=== PATIENT | male | born 1970 | race Caucasian/White ===

== ENCOUNTER → 2019-09-15 17:01 | Outpatient (BNVA) | payer BC, SELFPAY | PROVIDERS: Family Provider Nurse Practitioner; PCP Family Medicine; Visit Provider Family Medicine | DX: A09 Infectious gastroenteritis and colitis, unspecified (principal) | CPT/HCPCS: 87046; 87177; 87209; 87493 ==

== ENCOUNTER → 2019-09-19 14:39 | Outpatient (BNVA) | payer BC, SELFPAY | PROVIDERS: Family Provider Nurse Practitioner; PCP Family Medicine; Visit Provider Family Medicine | DX: A09 Infectious gastroenteritis and colitis, unspecified (principal) | CPT/HCPCS: 87505 ==

== ENCOUNTER → 2019-09-21 11:15 | Outpatient (BNVA) | payer BC, SELFPAY | PROVIDERS: Family Provider Nurse Practitioner; PCP Family Medicine; Visit Provider Family Medicine | DX: A09 Infectious gastroenteritis and colitis, unspecified (principal) | CPT/HCPCS: 87505 ==

== ENCOUNTER 2019-09-22 09:31 | Emergency (ER) | payer BC, SELFPAY ==
[2019-09-22 09:34] VITALS: BMI 43.2
[2019-09-22 09:38] VITALS: BP 161/117; PULSE 77; RESP 18; TEMP 36.6; O2SAT 98
[2019-09-22 10:11] LABS: Add Urine Microscopic? NO
[2019-09-22 10:17] LABS: Bilirubin Urine Neg (NEGATIVE); Blood Urine Neg (Negative); Glucose Urine UA Norm (Normal); Ketones Urine Negative (Negative); Leukocyte Esterase Urine Negative (Negative); Nitrate Urine Negative (Negative); Protein Urine Neg (Negative); Specific Gravity, Urine 1.015 (1.005-1.030); Urine Appearance Clear (CLEAR); Urine Color Yellow (Yellow); Urobilinogen Urine Norm (Negative)
[2019-09-22 10:28] LABS: Basophils % 0.5 %; Eosinophils # 0.3 10^3/uL (0.0-0.8); Eosinophils % 5.7 %; Hematocrit 47.9 % (42.0-52.0); Hemoglobin 16.7 g/dL (11.7-16.6); Lymphocytes # 1.2 10^3/uL (0.8-4.8); Lymphocytes % 21.4 %; Mean Corpuscular HGB Conc 34.9 g/dL (30.0-36.0); Mean Corpuscular Hemoglobin 30.6 pg (28.0-34.0); Mean Corpuscular Volume 87.7 fL (80-94); Mean Platelet Volume 9.7 fL (7.4-10.4); Monocytes # 0.3 10^3/uL (0.2-0.9); Monocytes % 5.7 %; Neutrophils # 3.7 10^3/uL (1.8-7.7); Neutrophils % 66.3 %; Nucleated Red Blood Cells % 0 %; Platelet Count 197 10^3/cmm (130-400); Red Blood Count 5.46 10^6/uL (4.1-5.3); Red Cell Distribution Width 12.7 % (12.1-15.1); White Blood Count 5.6 10^3/uL (4.0-10.0)
[2019-09-22 10:43] LABS: Alanine Aminotransferase 32 U/L (0-41); Albumin Level 4.4 g/dL (3.5-5.2); Alkaline Phosphatase 49 IU/L (40-130); Anion Gap 16.5 (5-19); Aspartate Amino Transferase 19 U/L (0-40); Blood Urea Nitrogen 10 mg/dL (6-20); Calcium 9.9 mg/Dl (8.6-10.0); Carbon Dioxide 25 mmol/L (22-29); Chloride 100 mmol/L (98-107); Globulin 2.8 g/dL (1.3-4.6); Glomerular Filtration Rate 103.2 mL/min (90-130); Glucose 198 mg/dL (74-109); Potassium 4.5 mmol/L (3.5-5.1); Sodium 137 mmol/L (136-145); Total Bilirubin 0.8 mg/dL (0.15-1.2); Total Protein 7.2 g/dL (6.6-8.7)
--- NOTE | 2019-09-22 12:17 | ED_ITS ---
Entered by Audelia Pino, acting as scribe for Lizbeth Linder MD Sep 22, 2019 09:31 HPI - Abdominal Pain General: Chief Complaint: Abdominal Pain Stated Complaint: abd pain, left eye pain Time Seen by Provider: 09/22/19 12:10 Source: patient Limitations: no limitations History of Present Illness: HPI narrative: 48 yo male presents to ED with complaints of RLQ abdominal pain. The patient states he was referred for abdomen CT due to the RLQ abdominal pain and diarrhea for 2 weeks. The patient states he also has L eye pain and swelling that began last night. He said he took OTC Benadryl last night and used cold compresses for the eye but had no relief. MD elicited complaint: abdominal pain and other (L eye pain and swelling) Pertinent past history: none Onset (ago): week(s) (2) Pain Consistency: intermittent Location: RLQ Severity: moderate Quality: cramping Radiation: none Migration to: no migration Exacerbating factors: nothing Relieving factors: nothing Associated Symptoms: Reports diarrhea; Denies chills and fever(s) Review of Systems Const: Denies: fever or chills Eyes: Reports: eye discomfort and eye redness; Denies: change in vision ENMT: Denies: throat pain or mouth pain Card: Denies: chest pain Resp: Denies: shortness of breath GI: Reports: abdominal pain and diarrhea Musc: Denies: back pain or joint pain Skin/Breast: Denies: rash Neuro: Denies: headache Psych: Denies: depression Endo: Denies: excessive urination Bill/Lymph: Denies: easy bruising All/Imm: Denies: hives PFSH ED PFSH: Statuses (acute, chronic, etc) shown below reflect problem list status as previously entered and may not be historically accurate Social History (Updated 09/13/19 @ 10:36 by Tri Scott LPN) Smoking and tobacco status: never smoked Alcohol intake: never Physical Exam Const: COMMON NORMALS: no apparent distress and healthy appearing HENMT: COMMON NORMALS: normocephalic and external nose normal HEAD & SCALP: normocephalic NOSE: external nose normal and no nasal discharge (nasal discha ge) Eye: OTHER: Slight erythema ecchymosis to the left eye no signs of periorbital cellulitis. Under fluorescein patient has no signs of abrasions. Neck/C-Spine: COMMON NORMALS: full ROM and no lymphadenopathy Chest: COMMONS NORMALS: inspection of chest normal Resp: COMMON NORMALS: normal respiratory effort and clear to auscultation bilaterally AUSCULTATION: clear to auscultation bilaterally Cardio: COMMON NORMALS: regular rate and regular rhythm RATE: regular rate RHYTHM: regular rhythm GI: COMMON NORMALS: soft to palpation PALPATION: Yes soft OTHER: slight tenderness over right lower quadratn Extremity: COMMON NORMALS: normal to inspection, full ROM and normal capillary refill Psych: COMMON NORMALS: mental status grossly normal and cooperative Skin: COMMON NORMALS: no rashes or lesions noted GENERAL SKIN EXAM: no rashes or lesions noted Course Vital Signs: Vital signs: Vital Signs Temperature 97.8 F 09/22/19 09:38 Pulse Rate 56 L 09/22/19 14:08 Respiratory Rate 16 09/22/19 14:08 Blood Pressure 151/69 09/22/19 14:08 Pulse Oximetry 94 09/22/19 14:08 MDM - Abdominal Pain MDM Narrative: Medical decision making narrative: Patient presents here with right lower quadrant abdominal pain with a negative CT scan. Patient's eye exam here shows likely allergic conjunctivitis. Patient is to do Benadryl eyedrops and is stable for discharge. Patient is to follow-up with primary care doctor in 3 to 5 days and return if worsening. Lab Data: Labs: Lab Results 09/22/19 09/22/19 09/22/19 Range/Units 10:00 10:20 10:20 WBC 5.6 (4.0-10.0) 10^3/ uL RBC 5.46 H (4.1-5.3) 10^6/u L Hgb 16.7 H (11.7-16.6) g/dL Hct 47.9 (42.0-52.0) % MCV 87.7 (80-94) fL MCH 30.6 (28.0-34.0) pg MCHC 34.9 (30.0-36.0) g/dL RDW 12.7 (12.1-15.1) % Plt Count 197 (130-400) 10^3/c mm MPV 9.7 (7.4-10.4) fL Neut % (Auto) 66.3 % Lymph % (Auto) 21.4 % [place] % (Auto) 5.7 % Eos % (Auto) 5.7 % Baso % (Auto) 0.5 % Neut # (Auto) 3.7 (1.8-7.7) 10^3/u L Lymph # (Auto) 1.2 (0.8-4.8) 10^3/u L [place] # (Auto) 0.3 (0.2-0.9) 10^3/u L Eos # (Auto) 0.3 (0.0-0.8) 10^3/u L Baso # (Auto) 0.0 (0.0-0.1) 10^3/u L Nucleated RBC % (a uto) 0 % Nucleated RBCs # 0.0 /100WBC Sodium 137 (136-145) mmol/L Potassium 4.5 (3.5-5.1) mmol/L Chloride 100 (98-107) mmol/L Carbon Dioxide 25 (22-29) mmol/L Anion Gap 16.5 (5-19) BUN 10 (6-20) mg/dL Creatinine 0.8 (0.7-1.2) mg/dL GFR Calculation 103.2 (90-130) mL/min Glucose 198 H (74-109) mg/dL Calcium 9.9 (8.6-10.0) mg/Dl Total Bilirubin 0.8 (0.15-1.2) mg/dL AST 19 (0-40) U/L ALT 32 (0-41) U/L Alkaline Phosphata se 49 (40-130) IU/L Total Protein 7.2 (6.6-8.7) g/dL Albumin 4.4 (3.5-5.2) g/dL Globulin 2.8 (1.3-4.6) g/dL Urine Color Yellow (Yellow) Urine Appearance Clear (CLEAR) Urine pH 5.0 (5-7) Ur Specific Gravit y 1.015 (1.005-1.030) Urine Protein Neg (Negative) Urine Glucose (UA) Norm (Normal) Urine Ketones Negative (Negative) Urine Occult Blood Neg (Negative) Urine Nitrate Negative (Negative) Urine Bilirubin Neg (NEGATIVE) Urine Urobilinogen Norm (Negative) mg/dL Ur Leukocyte Leida ase Negative (Negative) Discharge Plan Discharge Patient Disposition: Home, Self-Care Clinical Impression: Abdominal pain Qualifiers: Abdominal location: right lower quadrant Qualified Code(s): R10.31 - Right lower quadrant pain Acute allergic conjunctivitis Qualifiers: Laterality: left Qualified Code(s): H10.12 - Acute atopic conjunctivitis, left eye Condition: Stable Prescriptions: No Action metformin 1,000 mg tablet extended release 24hr 1,000 mg PO BID RF: 0 ibuprofen 800 mg tablet 800 mg PO TID PRN (Reason: Pain) RF: 0 Lactobacillus acidophilus Capsule 2,000 mmu cells PO QDAY 30 Days Qty: 30 RF: 0 azithromycin 500 mg tablet 500 mg PO DAILY RF: 0 Discharge Orders: Discharge Order (Routine); Ordered 09/22/19 Ordered By: Lizbeth Linder Referrals: Maura Suarez FNP [Family Provider] - Lexy Strickland MD [Primary Care Provider] - 4-7 days Discharge Diet: Advance as tolerated Discharge Activity: Resume usual activity Patient Instructions: Conjunctivitis (ED), Abdominal Pain (ED) Coding Level of Care Code ED Integration Architect for Chg Fwd Exam Problem Focused The documentation recorded by the Odette dominguez Valerie R, accurately reflects the service I personally performed and the decisions made by Niyah fine Korby, MD Sep 22, 2019 09:31
--- NOTE | 2019-09-22 12:24 | CTR_ITS ---
PROCEDURE INFORMATION: Exam: CT Abdomen And Pelvis With Contrast Exam date and time: 09/22/2019 12:31 PM Age: 48 years old Clinical indication: Abdominal pain; Acute; Additional info: Abd pain rlq pain x 4-5 weeks. TECHNIQUE: Imaging protocol: Computed tomography of the abdomen and pelvis with intravenous contrast. Total DLP: 2232.83 mGy-cm Radiation optimization: All CT scans at this facility use at least one of these dose optimization techniques: automated exposure control; mA and/or kV adjustment per patient size (includes targeted exams where dose is matched to clinical indication); or iterative reconstruction. Contrast material: OMNI 300; Contrast volume: 95 ml; Contrast route: IV; COMPARISON: CT abdomen pelvis w con* [id number] 08/25/2013 5:39 PM FINDINGS: Lungs: There is calcified granuloma in the left lung base. Otherwise, the lungs are clear. Liver: There is a diffuse decrease in hepatic parenchymal density, consistent with fatty infiltration. Gallbladder and bile ducts: Normal. No calcified stones. No ductal dilation. Pancreas: Normal. No ductal dilation. Spleen: Normal. No splenomegaly. Adrenals: Normal. No mass. Kidneys and ureters: There is no evidence of hydronephrosis. There is no evidence of renal calcifications. Stomach and bowel: Unremarkable. No obstruction. No mucosal thickening. Appendix: A normal appendix is identified. Intraperitoneal space: Unremarkable. No free air. No significant fluid collection. Vasculature: Unremarkable.No abdominal aortic aneurysm. Lymph nodes: Unremarkable.No enlarged lymph nodes. Bladder: There is nonspecific bladder wall thickening. This may be related to incomplete distention. Reproductive: The prostate demonstrates mild nonspecific enlargement. The seminal vesicles are normal. Improved scrotal wall edema compared to the prior study. Bones/joints: Moderate to severe degenerative changes are noted in the lower lumbar spine. Disc space narrowing with a vacuum disc at L3-L4 is noted. Schmorl's nodes and diffuse moderate degenerative changes are noted throughout the thoracolumbar spine. Soft tissues: Unremarkable. CT/CT abdomen pelvis w con* [id number] IMPRESSION: No acute abnormality or inflammatory changes. Radiation Dose CTDIVOL = (mGy): DLP = 2232.83 (mGy-cm)
[2019-09-22 13:55] VITALS: RESP 16
[2019-09-22] MEDS: morphine 4 mg/mL SDV 1 mL IVP (13:55)
[2019-09-22] MEDS: ondansetron 2 mg/ML SDV 2 mL 4 MG IVP (13:56)
[2019-09-22] MEDS: sodium chloride 0.9% 1,000 ML 999 ML IV (13:56)
[2019-09-22 14:08] VITALS: BP 151/69; PULSE 56; RESP 16; O2SAT 94
--- NOTE | 2019-09-22 14:42 | PC.NURSE ---
patient assessed for pain at this time. pt unable to keep eyes open while talking to this nurse. he stated that the pain was sharp but he was okay at this time. medardo leavitt, TENNIS [employer] MAKER notified of patient pain at this time. no further needs voiced from the patient at this time.
[2019-09-22 15:08] VITALS: BP 146/69; PULSE 56; RESP 16; O2SAT 94
[2019-09-22] MEDS: iohexol 300 mg/mL 100 mL Btl IV (16:04)
[2019-09-22] MEDS: tetracaine 0.5% Op Soln 4 mL Btl 1 DROP EYE-LEFT (17:09)
[2019-09-22] MEDS: fluorescein 1 mg Strip EYE-BOTH (17:11)
[2019-09-22 17:35] VITALS: BP 135/86; PULSE 86; RESP 16; O2SAT 97
== END 2019-09-22 17:20 | disposition home or self-care (01) ==
PROVIDERS: Family Medicine; Emergency Provider Emergency Medicine; Family Provider Nurse Practitioner; PCP Family Medicine
DX: R10.31 Right lower quadrant pain (principal); H10.12 Acute atopic conjunctivitis, left eye; Z79.84 Long term (current) use of oral hypoglycemic drugs
CPT/HCPCS: 36415; 74177; 80053; 81003; 85025; 96360; 96374; 99282; J2270; J2405; J7030; Q9967

== ENCOUNTER → 2019-11-21 08:55 | Outpatient (BNVA) | payer BC, SELFPAY | PROVIDERS: Family Provider Nurse Practitioner; PCP Family Medicine; Visit Provider Family Medicine | DX: E11.9 Type 2 diabetes mellitus without complications (principal); I10 Essential (primary) hypertension; M19.011 Primary osteoarthritis, right shoulder; K52.9 Noninfective gastroenteritis and colitis, unspecified | CPT/HCPCS: 80048; 80061; 83036 ==

== ENCOUNTER 2020-03-07 10:13 | Outpatient (CLI) | payer BC, SELFPAY ==
--- NOTE | 2020-03-07 11:00 | US_ITS ---
WS: [id number] TESTICULAR ULTRASOUND HISTORY: pain COMPARISON: 09/07/2017 TECHNIQUE: Real-time and color Doppler imaging or utilized to perform a testicular ultrasound. Right testicle: 3.5 cm x 2.8 cm x 2.2 cm. Normal size and echogenicity. No mass or torsion. Normal color Doppler is present throughout. Systolic and diastolic velocities are both present. No significant hydrocele. Right epididymis: Normal epididymis with no increased vascularity. Left testicle: 3.8 cm x 2.4 cm x 2.0 cm. Normal size and echogenicity. No mass or torsion. Normal color Doppler is present throughout. Systolic and diastolic velocities are both present. No significant hydrocele. Left epididymis: Normal epididymis with no increased vascularity. No herniated bowel loops are noted along the inguinal canals. US/US scrotum [id number] IMPRESSION: No evidence for orchitis or epididymitis. No RIGHT inguinal hernia.
== END 2020-03-07 10:14 | disposition home or self-care (01) ==
LOC: RAD 10:16
PROVIDERS: PCP Family Medicine; Visit Provider Nurse Practitioner
DX: N50.82 Scrotal pain (principal)
CPT/HCPCS: 76870

== ENCOUNTER → 2020-06-25 08:46 | Outpatient (BNVA) | payer BC, SELFPAY | PROVIDERS: PCP Family Medicine; Visit Provider Family Medicine | DX: E11.9 Type 2 diabetes mellitus without complications (principal); I10 Essential (primary) hypertension; K52.9 Noninfective gastroenteritis and colitis, unspecified | CPT/HCPCS: 80053; 83036 ==

== ENCOUNTER 2020-07-16 13:00 | Emergency (ER) | payer BC, SELFPAY ==
[2020-07-16 13:20] VITALS: BP 155/93; PULSE 94; RESP 14; TEMP 36.9; O2SAT 98; BMI 43.2
--- NOTE | 2020-07-16 13:43 | CTR_ITS ---
PROCEDURE INFORMATION: Exam: CT Maxillofacial With Contrast, Sinus Exam date and time: 07/16/2020 2:45 PM Age: 49 years old Clinical indication: Eye pain; Patient HX: RT earache for over 1 week C/O severe headache with right eye visual difficulty; Additional info: R eye pain TECHNIQUE: Imaging protocol: CT Maxillofacial with intravenous contrast. Focus on the sinuses. Radiation optimization: All CT scans at this facility use at least one of these dose optimization techniques: automated exposure control; mA and/or kV adjustment per patient size (includes targeted exams where dose is matched to clinical indication); or iterative reconstruction. Contrast material: OMNI 300; Contrast volume: 95 ml; Contrast route: INTRAVENOUS (IV); COMPARISON: No relevant prior studies available. RADIATION DOSE METRICS: Total DLP (mGy-cm): 751.92 FINDINGS: Frontal sinuses: Mucosal thickening of the right frontal sinus there is mucosal thickening at the right frontal sinus infundibulum causing stenosis. Small bony septal spur on the right. Removed at Ethmoid air cells: Mucosal thickening of the right maxillary sinus and right ethmoid sinuses Sphenoid sinuses: Normal. No air-fluid levels. Maxillary sinuses: Normal. No air-fluid levels. Ostiomeatal units are patent. Nasal cavity/Septum: Hypertrophy of bilateral inferior turbinates. Orbital cavity: Orbits are normal. Globes are unremarkable. Bones/joints: Unremarkable. Soft tissues: Unremarkable. CT/CT sinus w con [id number] IMPRESSION: Right paranasal sinus mucosal disease. Radiation Dose CTDIVOL = (mGy): DLP = 751.92 (mGy-cm)
--- NOTE | 2020-07-16 13:44 | ED_ITS ---
HPI - Headache General: Chief Complaint: Headache Stated Complaint: urgent care ref/head ache Time Seen by Provider: 07/16/20 13:28 History of Present Illness: HPI Narrative: 49-year-old male presents emergency room with complaint of right eye pain he was seen on 1113 and started on clarithromycin with some middle ear effusion. He did not notice any improvement was seen back today and was referred to the ER for persistent sinus pain. He is not having any fever there is no visual changes he localizes pain behind the right ear. MD elicited complaint: headache Pertinent past history: other (Recent sinus infection, acute right serous otitis effusion) Onset (ago): hour(s) Onset description: gradually Location: right and retro-orbital Severity: moderate Quality & Timing: throbbing Exacerbating factors: none Relieving factors: nothing Associated symptoms: Deny chest pain, confusion, cough, diaphoresis, eye pain, eye redness, fever(s), lightheadedness, loss of vision, malaise, nausea, neck stiffness, numbness, paresthesias, photophobia, pre-syncope, rash, seizures, short of breath, sound sensitivity, syncope, vomiting or weakness Treatments prior to arrival: none Review of Systems Const: Denies: fever(s), malaise or diaphoresis ENMT: Denies: throat pain, ear or mastoid pain, nasal discharge or nasal congestion Card: Denies: chest pain, lightheadedness, syncope or pre-syncope Resp: Denies: dyspnea, productive cough or non-productive cough GI: Denies: nausea or vomiting : Denies: flank pain, dysuria, urinary frequency or urinary urgency Skin/Breast: Denies: rash Neuro: Denies: confusion PFSH ED PFSH: Medical History (Updated 07/16/20 @ 15:15 by Sky Peres DO) Arthritis of right shoulder region Chronic diarrhea Essential hypertension Type 2 diabetes mellitus Surgical History (Updated 06/25/20 @ 08:49 by Lexy Strickland MD) H/O hernia repair Social History Smoking and tobacco status: never smoked Alcohol intake: never 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) Out of state: Yes Out of country: No Physical Exam Const: COMMON NORMALS: no acute distress GENERAL APPEARANCE: cooperative and comfortable ORIENTATION/CONSCIOUSNESS: Yes awake, Yes oriented to person, Yes oriented to place and Yes oriented to time HENMT: COMMON NORMALS: normocephalic, atraumatic, hearing grossly normal bilaterally, external ears normal, EAC's normal, TM's normal bilaterally, Normal nasal mucous membranes and turbinates present, moist oral mucous membranes and oropharynx normal HEAD & SCALP: normocephalic and atraumatic NOSE: Normal nasal mucous membranes and turbinates present EXTERNAL EAR: Yes external ears normal EXTERNAL AUDITORY CANAL: EAC's normal TYMPANIC MEMBRANE: TM's normal bilaterally Eye: COMMON NORMALS: Equal, round and reactive pupils present, EOMs intact bilaterally, conjunctivae normal and no scleral icterus CONJUNCTIVA: Yes conjunctivae normal PUPIL: Yes Equal, round and reactive pupils present DIRECT OPHTHALMOSCOPY: No photophobia Neck/C-Spine: COMMON NORMALS: no JVD Resp: COMMON NORMALS: normal respiratory effort, No retractions, No use of accessory muscles and clear to auscultation bilaterally AUSCULTATION: clear to auscultation bilaterally Cardio: COMMON NORMALS: no JVD, regular rate, regular rhythm and No murmurs present (Cardio) RATE: regular rate RHYTHM: regular rhythm Neuro: SENSORIUM/ORIENTATION: Yes oriented to person, Yes oriented to place and Yes oriented to time Skin: COMMON NORMALS: no rashes or lesions noted GENERAL SKIN EXAM: no rashes or lesions noted Course Vital Signs: Vital signs: Vital Signs Temperature 98.5 F 07/16/20 13:20 Pulse Rate 95 07/16/20 15:38 Respiratory Rate 18 07/16/20 15:38 Blood Pressure 155/93 07/16/20 13:20 Pulse Oximetry 98 07/16/20 15:38 MDM - Headache MDM Narrative: Medical decision making narrative: CT of the head negative for any orbital cellulitis. We will change him to Discharge Plan Discharge Patient Disposition: Home Clinical Impression: Sinusitis Condition: Stable Prescriptions: New levofloxacin 750 mg tablet 750 mg PO DAILY 10 Days Qty: 10 RF: 0 pseudoephedrine HCl 30 mg tablet 30 mg PO Q6H PRN (Reason: nasal congestion) Qty: 30 RF: 0 Discontinued clarithromycin 500 mg tablet 500 mg PO BID RF: 0 fexofenadine-pseudoephedrine [Alondra-D 12 Hour] 60-120 mg tablet extended release 12 hr 1 tab PO Q12H PRN (Reason: sinus symptoms) 15 Days Qty: 30 RF: 0 No Action ibuprofen 800 mg tablet 800 mg PO TID PRN (Reason: Pain) RF: 0 lisinopril 10 mg tablet 10 mg PO DAILY 90 Days Qty: 90 RF: 1 metformin 1,000 mg tablet 1,000 mg PO BID 90 Days Qty: 180 RF: 1 colestipol 1 gram tablet 1 gm PO BID PRN (Reason: unknown) RF: 0 Discharge Orders: Discharge Order (Routine); Ordered 07/16/20 Ordered By: Sky Peres Referrals: Lexy Strickland MD [Primary Care Provider] - Discharge Diet: Usual diet Discharge Activity: Increase activity as tolerated Stand Alone Forms: Work/School Release Coding Level of Care Code ED Final Rail Cutter for Chg Fwd Exam Detailed
[2020-07-16 13:49] VITALS: PULSE 94; RESP 16; O2SAT 98
[2020-07-16] MEDS: iohexol 300 mg/mL 100 mL Btl IV (14:46)
--- NOTE | 2020-07-16 14:46 | PC.NURSE ---
Pt in CT
[2020-07-16 15:01] VITALS: PULSE 92; RESP 18; O2SAT 98
[2020-07-16] MEDS: ketorolac 30 mg/mL INJ IVP (15:16)
[2020-07-16 15:38] VITALS: PULSE 95; RESP 18; O2SAT 98
== END 2020-07-16 15:39 | disposition home or self-care (01) ==
PROVIDERS: Emergency Provider Family Medicine; PCP Family Medicine
DX: J32.9 Chronic sinusitis, unspecified (principal); Z79.1 Long term (current) use of non-steroidal anti-inflammatories (NSAID); E11.9 Type 2 diabetes mellitus without complications; Z79.84 Long term (current) use of oral hypoglycemic drugs
CPT/HCPCS: 12345; 70487; 96374; 96375; 99282; 99283; J1885; Q9967

== ENCOUNTER 2020-10-13 15:52 | Outpatient (CLI) | payer BC, SELFPAY ==
--- NOTE | 2020-10-13 16:06 | XRR_ITS ---
PROCEDURE INFORMATION: Exam: XR Right Hip with Pelvis when Performed Exam date and time: 10/13/2020 4:07 PM Age: 49 years old Clinical indication: Injury or trauma; Fall; Blunt trauma (contusions or hematomas); Right; Hip; Additional info: Pain and injury TECHNIQUE: Imaging protocol: XR Right hip with pelvis when performed. Views: 2 or 3 views. COMPARISON: CT abdomen pelvis w con* [id number] 09/22/2019 4:11 PM FINDINGS: Bones/joints: Unremarkable. No acute fracture. Mild osteoarthritis of the right hip joint. Normal alignment. No aggressive bone lesion. Soft tissues: Unremarkable. XR/XR hip RT 2-3V wo/w pel* [id number] IMPRESSION: No acute findings.
--- NOTE | 2020-10-13 16:06 | XRR_ITS ---
PROCEDURE INFORMATION: Exam: XR Right Elbow Exam date and time: 10/13/2020 4:07 PM Age: 49 years old Clinical indication: Injury or trauma; Fall; Blunt trauma (contusions or hematomas); Elbow; Right; Additional info: Pain and injury TECHNIQUE: Imaging protocol: XR Right elbow. Views: 3 or more views. COMPARISON: No relevant prior studies available. FINDINGS: Bones/joints: Normal. Soft tissues: Normal. XR/XR elbow RT min 3V* [id number] IMPRESSION: No acute findings.
--- NOTE | 2020-10-13 16:06 | XRR_ITS ---
PROCEDURE INFORMATION: Exam: XR Right Shoulder Exam date and time: 10/13/2020 4:07 PM Age: 49 years old Clinical indication: Injury or trauma; Fall; Blunt trauma (contusions or hematomas); Shoulder; Right; Additional info: Pain and injury TECHNIQUE: Imaging protocol: XR Right shoulder. Views: 2 or more views. COMPARISON: No relevant prior studies available. FINDINGS: Bones/joints: Mild diffuse osseous demineralization. Mild osteoarthritis. No fractures. Unremarkable joint alignment. Soft tissues: Normal. XR/XR shoulder RT min 2V* [id number] IMPRESSION: Negative for acute right shoulder abnormality.
== END 2020-10-13 15:53 | disposition home or self-care (01) ==
LOC: RAD 15:54
PROVIDERS: PCP Family Medicine; Visit Provider Nurse Practitioner
DX: M25.551 Pain in right hip (principal); M25.511 Pain in right shoulder; M25.521 Pain in right elbow
CPT/HCPCS: 73030; 73080; 73502

== ENCOUNTER → 2020-10-22 08:50 | Outpatient (BNVA) | payer BC, SELFPAY | PROVIDERS: PCP Family Medicine; Visit Provider Family Medicine | DX: I10 Essential (primary) hypertension (principal); E11.9 Type 2 diabetes mellitus without complications; M25.551 Pain in right hip; Z13.6 Encounter for screening for cardiovascular disorders; Z13.220 Encounter for screening for lipoid disorders | CPT/HCPCS: 80048; 80061; 83036 ==

== ENCOUNTER 2020-12-25 15:27 | Outpatient (CLI) | payer OTHER, SELFPAY ==
--- NOTE | 2020-12-25 15:31 | CT_ITS ---
WS: [id number] Exam: CT hip RT wo con* [id number] Date/Time of Exam: 12/25/2020 3:31 PM Reason For Exam: M25.551 - Pain in right hip DLP: 717.[address] scans at [facility] use at least one of these dose optimization techniques: automat ed exposure control; mA and/or kV adjustment per patient size (includes targeted exams where dose is matched to clinical indication); or iterative reconstruction. The hip is evaluated in the axial plane with sagittal, coronal and 3-D reformatted images. Compared to abdominal and pelvic CT scan performed 09/22/2019. No sign of fracture or osteonecrosis noted. There appears to be a impingement along the lateral denny n of the femoral head secondary to osteophyte formation along the lateral margin of the acetabulum. M yofascial structures are unremarkable. No significant joint effusion is demonstrated. CT/CT hip RT wo con* [id number] IMPRESSION: 1. Acetabular morphology with osteophyte formation along the lateral margin lise t may cause femoral acetabular impingement. 2. The joint compartment is otherwise well maintained. No indication of the fra cture or osteonecrosis.
== END 2020-12-25 15:28 | disposition home or self-care (01) ==
PROVIDERS: PCP Family Medicine; Visit Provider Specialist
DX: M25.551 Pain in right hip (principal); M25.751 Osteophyte, right hip
CPT/HCPCS: 73700

== ENCOUNTER 2021-01-17 06:51 | Outpatient (CLI) | payer OTHER, SELFPAY ==
--- NOTE | 2021-01-17 07:15 | MR_ITS ---
WS: [id number] INDICATION: Pain and difficulty walking. Numbness right leg. TECHNIQUE: MRI the pelvis without gadolinium enhancement. Coronal T1-T2 and STIR imaging. Axial T1 an d T2 imaging. Sagittal T2 imaging. FINDINGS: Normal anatomic alignment. Normal bone marrow signal in the femoral heads bilaterally. Prominent right lateral osteophytic spurring is seen on the MRI. No evidence of edema in the femoral neck or acetabulum. Normal bone marrow signal in the proximal femurs. Normal bone marrow signal in the bony pelvis and sacrum. Normal bone marrow signal in the sacral ala. No evidence of insufficiency fracture. No sacral fractures. Disc space narrowing lower lumbar spine L3-4 with endplate edema. This is eccentric to the right. Advanced facet arthropathy lower lumbar spi ne. No inguinal lymphadenopathy. MR/MR pelvis wo con* [id number] IMPRESSION: 1. Moderate degenerative narrowing bilateral hips. No evidence of avascular ne crosis or edema in the femoral heads or femoral necks. 2. Slightly prominent right lateral acetabular osteophyte. No underlying edema in the femoral head or neck. 3. Normal bone marrow signal in the bony pelvis and sacrum. No sacral insuffic iency fractures. 4. Disc space narrowing partially evaluated in the lower lumbar spine L3-4 wit h endplate edema and mild disc bulging. This can be further evaluated with lumb ar spine MRI. 5. Advanced facet arthropathy lower lumbar spine.
== END 2021-01-17 06:52 | disposition home or self-care (01) ==
LOC: RADSHAW 06:53
PROVIDERS: PCP Family Medicine; Visit Provider Specialist
DX: M25.559 Pain in unspecified hip (principal); M47.896 Other spondylosis, lumbar region
CPT/HCPCS: 72195

== ENCOUNTER → 2021-02-07 07:58 | Outpatient (BNVA) | payer OTHER, SELFPAY | PROVIDERS: PCP Family Medicine; Visit Provider Specialist | DX: G90.521 Complex regional pain syndrome I of right lower limb (principal); M54.9 Dorsalgia, unspecified; G62.89 Other specified polyneuropathies; S30.0XXA Contusion of lower back and pelvis, initial encounter; Y93.9 Activity, unspecified | CPT/HCPCS: 95886; 95908; 99204 ==

== ENCOUNTER → 2021-02-15 08:18 | Outpatient (BNVA) | payer OTHER, SELFPAY | PROVIDERS: PCP Family Medicine; Referring Provider Specialist; Visit Provider Anesthesiology Pain Medicine | DX: M51.17 Intervertebral disc disorders with radiculopathy, lumbosacral region (principal); M51.16 Intervertebral disc disorders with radiculopathy, lumbar region; M47.816 Spondylosis without myelopathy or radiculopathy, lumbar region; M54.9 Dorsalgia, unspecified; G90.521 Complex regional pain syndrome I of right lower limb; G62.9 Polyneuropathy, unspecified; M62.830 Muscle spasm of back; Z79.891 Long term (current) use of opiate analgesic | CPT/HCPCS: 99205 ==